=== PATIENT | male | born 1965 | race Caucasian/White ===

== ENCOUNTER → 2017-03-08 | Outpatient (CLI) | payer BC ==
[~2017-03-08] MED LIST: ANUSOL OINTMENT30 G1 RC; HYALURONIC ACID PO; IBUPROFEN PO; IBUPROFEN800 MG PO; MULTIPLE VITAMI1 T11 PO; PRILOSEC PO; TYL325 PO; VICODIN 5/1 TAB 5/50 PO; VITAM PO; VITAMIN C250 MG PO
--- NOTE | ~2017-03-08 | EKG ---
PATIENT: MER FAJARDO UNIT #: [id number] Ventricular Rate: 71 BPM Atrial Rate: 71 BPM P-R Interval: 144 ms QRS Duration: 94 ms Q-T Interval: 378 ms QTC Calculation(Bezet): 410 ms P [place]: -23 degrees Calculated R [place]: 44 degrees Calculated T [place]: 40 degrees Diagnosis Line: Normal sinus rhythm Diagnosis Line: Normal ECG Diagnosis Line: No previous ECGs available Diagnosis Line: Confirmed by SOFIA HAWKINS MD ([id number]) on Diagnosis Line: 03/08/2017 11:24:47 PM INTERPRETING MD: SOL
[2017-03-08 11:42] LABS: HEMOGLOBIN 16.4 gm/dL (13.0-16.0); MEAN CORPUSCULAR HEMOGLOBIN 31.8 PG (28-34); MEAN CORPUSCULAR HGB CONC 32.8 g/dL (30-36); MEAN PLATELET VOLUME 8.1 FL (6.5-11.5); RED BLOOD COUNT 5.16 X10e (3.90-5.60); RED CELL DISTRIBUTION WIDTH 13.5 % (11.0-15.5); WHITE BLOOD COUNT 9.7 X10e3 (4.0-10.5)
[2017-03-08 12:19] LABS: BUN/CREATININE RATIO 16.66; CREATININE SERUM 0.9 mg/dL (0.6-1.4); GLOM FILT RATE Estimated 97.2 mL/min (>60); POTASSIUM 4.3 mmol/L (3.5-5.1)
== END | disposition home or self-care (01) ==
LOC: CAMB 10:05
PROVIDERS: Specialist
DX: Z01.818 Encounter for other preprocedural examination (principal); K64.3 Fourth degree hemorrhoids
CPT/HCPCS: 36415; 80048; 85027; 93005

== ENCOUNTER → 2017-03-12 | Day surgery (SDC) | payer BC ==
--- NOTE | ~2017-03-12 | OR ---
Unit #: [id number] #: [id number] Patient: MER FAJARDO [id number] [facility] [address] [place], [place] [address] [id number] O MR#: [id number] NAME: MER FAJARDO ROOM: Date of Procedure: 03/12/2017 Admission Date: 03/12/2017 Surgeon: Bean Isidro M.D. : 1965 Attending Physician: Bean Isdiro M.D. Primary Care Physician: Elaina Garcia M.D. PROCEDURE OPERATIVE NOTE PREOPERATIVE DIAGNOSIS Grade 4 incarcerated and thrombosed hemorrhoids. POSTOPERATIVE DIAGNOSIS Grade 4 incarcerated and thrombosed hemorrhoids. PROCEDURE PERFORMED Open external and internal hemorrhoidectomy x3 columns. ANESTHESIA General endotracheal. ESTIMATED BLOOD LOSS Less than 20 mL. INDICATION A 51-year-old gentleman with a long history of hemorrhoidal disease presented in the office several days ago with very painful incarcerated, thrombosed, and prolapsed internal and external hemorrhoids. The patient was put on pain medication, antiinflammatories, and stool softeners and scheduled for surgery. DESCRIPTION OF PROCEDURE Patient was admitted to [facility], positively identified, and transported to the operating room, and after induction of general endotracheal anesthesia, he received 2 grams of Cefotan IV. He was placed in the prone position with appropriate padding at all pressure points and placed in the jackknife position. Buttocks were taped apart. On examination, he had thrombosed, prolapsed, and incarcerated internal and external hemorrhoids. A perineal block using 0.5% Marcaine with epinephrine was performed, and then I reduced the hemorrhoidal mass and massaged the hemorrhoidal mass to reduce the acute edema. Once that had been adequately performed, an operating anoscope was inserted, and I visualized three primary columns with both thrombosed external and internal hemorrhoids with some friability and ulceration in the internal component. The hemorrhoidal mass was elevated with Allis clamps, and then using a harmonic scalpel, the hemorrhoidal mass was dissected off the anorectal ring. After removal of each of the three hemorrhoidal masses, there was good hemostasis. I was able to maintain adequate anoderm to prevent anal stenosis. After I had completed all three columns, I palpated circumferentially and could not feel any further thrombosed tissue or masses. At this point, we packed the surgical anal canal with 2% lidocaine jelly and Gelfoam. A Clair-Pad and fishnet pants were placed. Unit #: [id number] #: [id number] Patient: MER FAJARDO A Sponge and needle counts were correct x3. Patient was transported to recovery in stable condition. Findings and postoperative instructions were discussed with his . Dictated by... Bean Isidro M.D. STANISLAV/ember TD: 03/12/2017 17:24 JOB #: [id number] PROCEDURE OPERATIVE NOTE Page 1 of 1 X Bean Isidro MD PROCEDURE OPERATIVE NOTE
== END | disposition home or self-care (01) ==
LOC: CSUR 12:57
DX: K64.3 Fourth degree hemorrhoids (principal); K64.4 Residual hemorrhoidal skin tags; E78.5 Hyperlipidemia, unspecified; J45.909 Unspecified asthma, uncomplicated; K21.9 Gastro-esophageal reflux disease without esophagitis; F17.210 Nicotine dependence, cigarettes, uncomplicated; Z86.010 Personal history of colon polyps; Z79.1 Long term (current) use of non-steroidal anti-inflammatories (NSAID); Z79.899 Other long term (current) drug therapy; Z98.890 Other specified postprocedural states
CPT/HCPCS: 88304; J0330; J2250; J2405; J3010